=== PATIENT | female | born 1980 | race Caucasian/White ===

== ENCOUNTER 2017-07-16 16:44 | Emergency (ER) | payer MEDICAID ==
[~2017-07-16] VITALS: Ht 162.6 cm; Wt 82.0 kg
[~2017-07-16 16:44] MED LIST: IBUP600 PO; METH500T PO; PREN1TAB30 PO
[2017-07-16 16:45] VITALS: BP 173/90; PULSE 92; RESP 20; TEMP 98.4; O2SAT 99
--- NOTE | 2017-07-16 17:11 | PD ---
HPI Chief Complaint: Chest Pain Time Seen by Provider: 17:04 Travel History International Travel<30 days: No Contact w/Intl Traveler<30days: No Traveled to known affect area: No History of Present Illness HPI 36 YO F with PMH of anxiety presents to the ED for evaluation of 9 day history of intermittent, fleeting, left-sided chest pain. Exacerbated by stress. No alleviating factors reported. Patient states that the episodes last a few seconds before resolving. She endorses occasional palpitations. She denies associated nausea, vomiting, diaphoresis, shortness of breath. She states that she is an extremely rare smoker, less than 1 cigarette per week and only when she drinks alcohol. She denies family cardiac history. She does not take oral contraception. PFSH Past Medical History Anxiety: Yes Depression: Yes Diminished Hearing: No Neurologic: Yes Psychiatric: Yes Seizures: Yes (RESOLVED) Influenza Vaccination: No ?: Not LMP: 07/09/17 : 3 Para: 1 Miscarriage: 1 : 1 Social History Alcohol Use: Yes (on occasion) Tobacco Use: Yes (on occasion) Substance Use: No Allergies-Medications (Allergen,Severity, Reaction): Coded Allergies: No Known Allergies (Verified Adverse Reaction, Unknown, 07/16/17) Reported Meds & Prescriptions Reported Meds & Active Scripts Active No Active Prescriptions or Reported Medications Review of Systems Except as stated in HPI: all other systems reviewed are Neg Physical Exam Narrative GENERAL: Obese white female in no acute distress. SKIN: Focused skin assessment warm/dry. HEAD: Normocephalic. EYES: No scleral icterus. No injection or drainage. NECK: Supple, trachea midline. No JVD or lymphadenopathy. CARDIOVASCULAR: Regular rate and rhythm without murmurs, gallops, or rubs. CHEST: Nontender throughout without deformity or crepitus. RESPIRATORY: Breath sounds equal bilaterally. No accessory muscle use. GASTROINTESTINAL: Abdomen soft, non-tender, nondistended. Active bowel sounds. MUSCULOSKELETAL: No cyanosis, or edema. BACK: Nontender without obvious deformity. No CVA tenderness. Data Data Last Documented VS Vital Signs Date Time Temp Pulse Resp B/P (MAP) Pulse Ox O2 Delivery O2 Flow Rate FiO2 07/16/17 19:24 07/16/17 17:39 98 Room Air 07/16/17 17:16 97 19 07/16/17 16:45 98.4 Orders Orders Electrocardiogram (07/16/17:21) Ckmb (Isoenzyme) Profile (07/16/17 17:21) Complete Blood Count With Diff (07/16/17:) Comprehensive Metabolic Panel (07/16/17) Magnesium (Mg) (07/16/17:) Prothrombin Time / Inr (Pt) (07/16/17:) Act Partial Throm Time (Ptt) (07/16/17:) Troponin I (07/16/17) Chest, Single Ap (07/16/17:) Ecg Monitoring (07/16/17:) Bilateral Bp Monitoring (07/16/17:) Iv Access Insert/Monitor (07/16/17) Oximetry (07/16/17:) Aspirin (Aspirin) (07/16/17 17:30) Sodium Chloride 0.9% Flush (Ns Flush) (07/16/17 17:30) Calcium Carbonate (Oscal) (07/16/17 19:15) Ed Discharge Order (07/16/17 19:16) Labs Laboratory Tests Test 07/16/17 17:30 White Blood Count 8.0 TH/MM3 Red Blood Count 4.01 MIL/MM3 Hemoglobin 11.9 GM/DL Hematocrit 36.1 % Mean Corpuscular Volume 90.0 FL Mean Corpuscular Hemoglobin 29.7 PG Mean Corpuscular Hemoglobin Concent 33.0 % Red Cell Distribution Width 13.9 % Platelet Count 275 TH/MM3 Mean Platelet Volume 7.6 FL Neutrophils (%) (Auto) 61.9 % Lymphocytes (%) (Auto) 29.1 % Monocytes (%) (Auto) 6.3 % Eosinophils (%) (Auto) 2.0 % Basophils (%) (Auto) 0.7 % Neutrophils # (Auto) 4.9 TH/MM3 Lymphocytes # (Auto) 2.3 TH/MM3 Monocytes # (Auto) 0.5 TH/MM3 Eosinophils # (Auto) 0.2 TH/MM3 Basophils # (Auto) 0.1 TH/MM3 CBC Comment DIFF FINAL Differential Comment Prothrombin Time 9.9 SEC Prothromb Time International Ratio 0.9 RATIO Activated Partial Thromboplast Time 25.2 SEC Blood Urea Nitrogen 17 MG/DL Creatinine 0.95 MG/DL Random Glucose 96 MG/DL Total Protein 7.2 GM/DL Albumin 3.7 GM/DL Calcium Level 8.3 MG/DL Magnesium Level 2.0 MG/DL Alkaline Phosphatase 73 U/L Aspartate Amino Transf (AST/SGOT) 12 U/L Alanine Aminotransferase (ALT/SGPT) 20 U/L Total Bilirubin 0.3 MG/DL Sodium Level 142 MEQ/L Potassium Level 4.0 MEQ/L Chloride Level 109 MEQ/L Carbon Dioxide Level 23.4 MEQ/L Anion Gap 10 MEQ/L Estimat Glomerular Filtration Rate 67 ML/MIN Total Creatine Kinase 75 U/L Troponin I LESS THAN 0.02 NG/ML MDM Medical Decision Making Medical Screen Exam Complete: Yes Emergency Medical Condition: Yes Differential Diagnosis Chest pain versus palpitations versus GERD versus other Narrative Course 36 YO F with PMH of anxiety presents to the ED for evaluation of 9 day history of intermittent, fleeting, left-sided chest pain. Exacerbated by stress. No alleviating factors reported. Patient states that the episodes last a few seconds before resolving. She endorses occasional palpitations. She denies associated nausea, vomiting, diaphoresis, shortness of breath. She denies family cardiac history. She does not take oral contraception. Vitals reviewed. Physical exam reveals an obese white female in no acute distress. Chest is CTA B. Abdomen soft nontender. No lower extremity edema noted. Patient was administered ASA by mouth. EKG rate 89, sinus rhythm. Normal intervals. Normal axis. No ST changes. Reviewed by Dr. Aden. CXR: No acute disease. Cardiac enzymes: Negative 1. No concerning abnormalities of CBC or coags. Mild hypocalcemia, replace with 1 g orally. I discussed the results of the workup with the patient. Suspect her symptoms are secondary to anxiety. Her risk factors are low and I think she can be followed on an outpatient basis. She is provided with information for the [place] clinic. We discussed reasons to return to the ED. She is agreeable with the care plan. She is stable and discharged home. Diagnosis Primary Impression: Chest pain in adult Referrals: [facility] Patient Instructions: Anxiety (ED), General Instructions Additional Instructions: Rest, hydrate. Avoid known stressors as possible. Return to normal, gentle activity as tolerated. Keep a log of your blood pressure to present to your doctor at the next visit. Follow-up with his clinic as discussed. Return to the ED for worsening symptoms or any urgent or emergent medical condition. Scripts No Active Prescriptions or Reported Meds Disposition: 01 DISCHARGE HOME Condition: Stable Jigna Linn Jul 16, 2017 17:11
[2017-07-16 17:16] VITALS: BP 152/98; PULSE 97; RESP 19; O2SAT 98
[2017-07-16] MEDS ORDERED: ASPIRIN 325 MG TAB PO ONE (17:30)
[2017-07-16] MEDS ORDERED: SODIUM CHLORIDE 0.9% FLUSH 10 ML FLUSH IVF PRN (17:30)
[2017-07-16 17:39] VITALS: O2SAT 98
[2017-07-16 17:56] LABS: AUTOMATED NEUTROPHIL # 4.9 TH/MM3 (1.8-7.7); BASOPHIL # 0.1 TH/MM3 (0-0.2); BASOPHIL % 0.7 % (0.0-2.0); EOSINOPHIL # 0.2 TH/MM3 (0-0.4); HEMATOCRIT 36.1 % (35.0-46.0); HEMO FLAGS DIFF FINAL; LYMPH % 29.1 % (9.0-44.0); LYMPHOCYTE # 2.3 TH/MM3 (1.0-4.8); MEAN CORPUSCULAR HEMOGLOBIN 29.7 PG (27.0-34.0); MONO % 6.3 % (0.0-8.0); NEUT % 61.9 % (16.0-70.0); PLATELET COUNT 275 TH/MM3 (150-450); RED BLOOD COUNT 4.01 MIL/MM3 (4.00-5.30); RED CELL DISTRIBUTION WIDTH 13.9 % (11.6-17.2)
[2017-07-16 18:05] LABS: APTT (PATIENT) 25.2 SEC (24.3-30.1); INTERNATIONAL NORMALIZED RATIO 0.9 RATIO; PROTHROMBIN TIME - PATIENT 9.9 SEC (9.8-11.6)
[2017-07-16 18:19] LABS: ALT (GPT) 20 U/L (10-53); ANION GAP 10 MEQ/L (5-15); AST (GOT) 12 U/L (15-37); BICARBONATE 23.4 MEQ/L (21.0-32.0); BLOOD UREA NITROGEN 17 MG/DL (7-18); CHLORIDE 109 MEQ/L (98-107); GLOMERULAR FILTRATION RATE 67 ML/MIN (>89); SODIUM (NA) 142 MEQ/L (136-145)
[2017-07-16 18:22] LABS: ALKALINE PHOSPHATASE 73 U/L (45-117); TOTAL BILIRUBIN ADULT 0.3 MG/DL (0.2-1.0)
--- NOTE | 2017-07-16 18:22 | RADRPT ---
EXAM DATE/TIME: 07/16/2017 17:32 [facility] COMPARISON: No previous studies available for comparison. INDICATIONS : Chest pain. MEDICAL HISTORY : None. SURGICAL HISTORY : None. ENCOUNTER: Initial ACUITY: 2 days PAIN SCORE: 3/10 LOCATION: chest FINDINGS: A single view of the chest demonstrates the lungs to be symmetrically aerated without evidence of mas s, infiltrate or effusion. The cardiomediastinal contours are unremarkable. Osseous structures are intact. CONCLUSION: No acute disease. Lele Ibrahim MD on July 16, 2017 at 18:21 Board Certified Radiologist. This report was verified electronically.
[2017-07-16 18:24] LABS: CREATINE KINASE 75 U/L (26-192)
--- NOTE | 2017-07-16 18:51 | PD ---
Data Data Last Documented VS Vital Signs Date Time Temp Pulse Resp B/P (MAP) Pulse Ox O2 Delivery O2 Flow Rate FiO2 07/16/17 17:39 98 Room Air 07/16/17 17:16 97 19 07/16/17 16:45 98.4 Orders Orders Electrocardiogram (07/16/17 17:21) Ckmb (Isoenzyme) Profile (07/16/17 17:21) Complete Blood Count With Diff (07/16/17:) Comprehensive Metabolic Panel (07/16/17) Magnesium (Mg) (07/16/17:) Prothrombin Time / Inr (Pt) (07/16/17:) Act Partial Throm Time (Ptt) (07/16/17) Troponin I (07/16/17) Chest, Single Ap (07/16/17:21) Ecg Monitoring (07/16/17:) Bilateral Bp Monitoring (07/16/17:) Iv Access Insert/Monitor (07/16/17) Oximetry (07/16/17:) Aspirin (Aspirin) (07/16/17 17:30) Sodium Chloride 0.9% Flush (Ns Flush) (07/16/17:30) Labs Laboratory Tests Test 07/16/17 17:30 White Blood Count 8.0 TH/MM3 Red Blood Count 4.01 MIL/MM3 Hemoglobin 11.9 GM/DL Hematocrit 36.1 % Mean Corpuscular Volume 90.0 FL Mean Corpuscular Hemoglobin 29.7 PG Mean Corpuscular Hemoglobin Concent 33.0 % Red Cell Distribution Width 13.9 % Platelet Count 275 TH/MM3 Mean Platelet Volume 7.6 FL Neutrophils (%) (Auto) 61.9 % Lymphocytes (%) (Auto) 29.1 % Monocytes (%) (Auto) 6.3 % Eosinophils (%) (Auto) 2.0 % Basophils (%) (Auto) 0.7 % Neutrophils # (Auto) 4.9 TH/MM3 Lymphocytes # (Auto) 2.3 TH/MM3 Monocytes # (Auto) 0.5 TH/MM3 Eosinophils # (Auto) 0.2 TH/MM3 Basophils # (Auto) 0.1 TH/MM3 CBC Comment DIFF FINAL Differential Comment Prothrombin Time 9.9 SEC Prothromb Time International Ratio 0.9 RATIO Activated Partial Thromboplast Time 25.2 SEC Blood Urea Nitrogen 17 MG/DL Creatinine 0.95 MG/DL Random Glucose 96 MG/DL Total Protein 7.2 GM/DL Albumin 3.7 GM/DL Calcium Level 8.3 MG/DL Magnesium Level 2.0 MG/DL Alkaline Phosphatase 73 U/L Aspartate Amino Transf (AST/SGOT) 12 U/L Alanine Aminotransferase (ALT/SGPT) 20 U/L Total Bilirubin 0.3 MG/DL Sodium Level 142 MEQ/L Potassium Level 4.0 MEQ/L Chloride Level 109 MEQ/L Carbon Dioxide Level 23.4 MEQ/L Anion Gap 10 MEQ/L Estimat Glomerular Filtration Rate 67 ML/MIN Total Creatine Kinase 75 U/L Troponin I LESS THAN 0.02 NG/ML MDM Supervised Visit with KRISTINE: Yes Narrative Course The history, exam, and medical decision-making in the associated mid-level provider note were completed with my assistance. I reviewed and agree with the findings presented. I attest that I had a [id number] encounter with the patient on the same day, and personally performed and documented my assessment and findings in the medical record. *My assessment and Findings: 36-year-old woman with intermittent chest pain, likely stress related. Workups unremarkable. History is on minimally suggestive of heart problems. Benign abdominal exam. Recommend outpatient follow-up. Scripts No Active Prescriptions or Reported Meds Rodrigo Aden MD Jul 16, 2017 18:51
[2017-07-16] MEDS ORDERED: CALCIUM CARBONATE 1.25 GM (CA 500 MG) TAB PO ONE (19:15)
--- NOTE | 2017-07-17 13:26 | EKG ---
Date Performed: 07/16/2017 Time Performed: 17:20:25 PTAGE: 36 years EKG: Sinus rhythm NORMAL ECG Compared to prior tracing no significant change PREVIOUS TRACING : 04/08/2009 23.19 DOCTOR: Jamal Terrell Interpretating Date/Time 07/17/2017 13:24:27
== END 2017-07-16 19:37 | disposition home or self-care (01) ==
LOC: NEPC 16:44
DX: F41.9 Anxiety disorder, unspecified (principal); F32.9 Major depressive disorder, single episode, unspecified; R07.9 Chest pain, unspecified
CPT/HCPCS: 71010; 80053; 82550; 83735; 84484; 85025; 85610; 85730; 93005